=== PATIENT | female | born 1955 | race Caucasian/White ===

== ENCOUNTER 2017-03-19 07:18 | Emergency (ER) | payer BC ==
[2017-03-19 07:49] VITALS: BP 110/81
[2017-03-19] MEDS ORDERED: Triamcinolone Acetonide 40 MG/ML 1 ML MDV INJECT ONE (08:04)
--- NOTE | 2017-03-19 08:10 | EDM.PDOC ---
ED HPI GENERAL MEDICAL PROBLEM - General Chief Complaint: Eye Problems Stated Complaint: BIT BY SOMETHING/EYE SWOLLEN Time Seen by Provider: 03/19/17 08:05 Source of Information: Reports: Patient, Family History Limitations: Reports: No Limitations - History of Present Illness INITIAL COMMENTS - FREE TEXT/NARRATIVE: pt was bite by a insect unknown type yesterday. She did cool pack it and took some zyrtec. She still has alot of swelling and is uncomfortable. Onset: Gradual Duration: Hour(s): Associated Symptoms: Reports: No Other Symptoms - Related Data Allergies Allergy/AdvReac Type Severity Reaction Status Date / Time Penicillins Allergy Rash Verified 03/19/17 07:54 Past Medical History Musculoskeletal History: Reports: Osteoporosis - Infectious Disease History Infectious Disease History: Reports: Chicken Pox - Past Surgical History HEENT Surgical History: Reports: Cataract Surgery Musculoskeletal Surgical History: Reports: Other (See Below) Other Musculoskeletal Surgeries/Procedures:: elbow surgery and varicose vein stripping Social & Family History - Tobacco Use Smoking Status *Q: Never Smoker - Caffeine Use Caffeine Use: Reports: Coffee, Tea - Recreational Drug Use Recreational Drug Use: No ED ROS GENERAL - Review of Systems Review Of Systems: See Below Constitutional: Reports: No Symptoms HEENT: Reports: Other (pt has marked swelling from a bite under the rt eye,) Respiratory: Reports: No Symptoms Cardiovascular: Reports: No Symptoms Endocrine: Reports: No Symptoms GI/Abdominal: Reports: No Symptoms : Reports: No Symptoms Musculoskeletal: Reports: Hand Pain Skin: Reports: No Symptoms ED EXAM GENERAL W FULL EYE - Physical Exam Exam: See Below Text/Narrative:: Pt was bite by a insect yestwerday and has marked swelling by the rt eye. Exam Limited By: No Limitations General Appearance: Alert, Anxious, Other ( under the rt eye she has swelling and she haswelling extending over the cheek. ) Ears: Normal TMs Nose: Normal Inspection Throat/Mouth: Normal Inspection Head: Atraumatic Neck: Normal Inspection Respiratory/Chest: No Respiratory Distress GI/Abdominal: Non-Tender Skin Exam: No Rash Course - Vital Signs Last Recorded V/S: Last Vital Signs Temp 35.9 C 03/19/17 07:49 Pulse 110 H 03/19/17 07:49 Resp 16 03/19/17 07:49 BP 110/81 03/19/17 07:49 Pulse Ox 100 03/19/17 07:49 - Orders/Labs/Meds Orders: Active Orders 24 hr Category Date Time Status Triamcinolone Acetonide [Kenalog-40] Med 03/19/17 08:04 Once 60 mg INJECT ASDIRECTED ONE - Re-Assessments/Exams Free Text/Narrative Re-Assessment/Exam: 03/19/17 08:09 pt was given kenalog 60mg im. Departure - Departure Time of Disposition: 08:10 Disposition: Home, Self-Care 01 Condition: Fair Clinical Impression: Allergic to insect bites - Discharge Information Forms: ED Department Discharge Care Plan Goals: cool pack, benadryl 50mg tid, rtc if this should become generalized. - My Orders Last 24 Hours: My Active Orders 03/19/17 08:04 Triamcinolone Acetonide [Kenalog-40] 60 mg INJECT ASDIRECTED ONE - Assessment/Plan Last 24 Hours: My Active Orders 03/19/17 08:04 Triamcinolone Acetonide [Kenalog-40] 60 mg INJECT ASDIRECTED ONE
== END 2017-03-19 08:30 | disposition home or self-care (01) ==
LOC: JP.ED 07:18
DX: T78.40XA Allergy, unspecified, initial encounter (principal); S00.86XA Insect bite (nonvenomous) of other part of head, initial encounter; Z98.49 Cataract extraction status, unspecified eye; Z98.890 Other specified postprocedural states; Z88.0 Allergy status to penicillin; W57.XXXA Bitten or stung by nonvenomous insect and other nonvenomous arthropods, initial encounter
CPT/HCPCS: 96372; 99283; J3301